=== PATIENT | male | born 1955 | race Asian ===

== ENCOUNTER 2018-04-08 09:43 | Observation (INO) | payer OTHER ==
--- NOTE | 2018-04-08 10:18 | PDOC ---
History of Present Illness - General History Source: Patient Exam Limitations: No Limitations - History of Present Illness Initial Comments: 04/08/18 10:38 The patient is a 62-year-old male, with a past medical history of HTN and HLD, who was BIBA for evaluation of dizziness. The patient states he was at work when he suddenly began experiencing dizziness and blurred vision. He denies any loss of consciousness and reports that he sat down while his coworkers called EMS. His symptoms slowly improved upon arrival of EMS and now have resolved in the ED. He reports 3 days of a productive cough of yellow sputum. The patient denies any fever, chills, nausea, vomiting, diarrhea, melena, or abdominal pain. Denies any chest pain or shortness of breath. Denies any lightheadedness or headache. He denies hematuria. Allergies: NKA Surgical History: None reported. Social History: Social drinker. PCP: Dr. Ernesto Escalona ([place]) <Marifer Pfeiffer - Last Filed: 04/08/18 12:15> - General History Source: Patient Exam Limitations: No Limitations <Alirio Simon - Last Filed: 04/08/18 14:10> - General Chief Complaint: Blood Pressure Problem Stated Complaint: HYPOTENSIVE Time Seen by Provider: 04/08/18 10:18 Past History <Marifer Pfeiffer - Last Filed: 04/08/18 12:15> - Past Medical History COPD: No CHF: No HTN: Yes - Suicide/Smoking/Psychosocial Hx Smoking History: Never smoked Have you smoked in the past 12 months: No Information on smoking cessation initiated: No Hx Alcohol Use: No Drug/Substance Use Hx: No <Alirio Simon - Last Filed: 04/08/18 14:10> - Past Medical History Allergies/Adverse Reactions: Allergies Allergy/AdvReac Type Severity Reaction Status Date / Time No Known Allergies Allergy Verified 04/08/18 09:56 Home Medications: Ambulatory Orders Amlodipine Besylate/Benazepril [Lotrel 5-20 mg Capsule] 1 each PO DAILY Aspirin [Ecotrin] 81 mg PO DAILY 04/08/18 Nitroglycerin 0.4 mg SL PRN 04/08/18 Review of Systems - Review of Systems Able to Perform ROS?: Yes Comments:: 04/08/18 10:38 CONSTITUTIONAL: No fever, no chills, no fatigue EYES: (+)Blurred vision. ENT: No ear pain, no sore throat CARDIOVASCULAR: No chest pain, no palpitations RESPIRATORY: (+)Cough. No SOB GI: No abdominal pain, no nausea, no vomiting, no constipation, no diarrhea GENITOURINARY: No dysuria, no frequency, no hematuria MUSKULOSKELETAL: No backpain, no joint pain, no myalgias SKIN: No rash NEURO: (+)Dizziness. No headache <Marifer Pfeiffer - Last Filed: 04/08/18 12:15> *Physical Exam - Vital Signs Last Vital Signs Temp Pulse Resp BP Pulse Ox 97.4 F L 54 L 16 125/79 100 04/08/18 09:43 04/08/18 09:43 04/08/18 09:43 04/08/18 09:43 04/08/18 09:43 - Physical Exam Comments: 04/08/18 10:40 CONSTITUTIONAL: Well-appearing; well-nourished; in no apparent distress HEAD: Normocephalic; atraumatic EYES: PERRL; EOM intact ENMT: External appears normal; normal oropharynx NECK: Supple; non-tender; no cervical lymphadenopathy CARD: Normal S1, S2; no murmurs, rubs, or gallops RESP: Normal chest excursion with respiration; breath sounds clear and equal bilaterally; no wheezes, rhonchi, or rales ABD: Soft, non-distended; non-tender; no palpable organomegaly, no palpable hernias EXT: Normal ROM in all four extremities; non-tender to palpation; distal pulses intact SKIN: Warm, dry, no rash <Marifer Pfeiffer - Last Filed: 04/08/18 12:15> - Vital Signs Last Vital Signs Temp Pulse Resp BP Pulse Ox 97.4 F L 54 L 16 125/79 100 04/08/18 09:43 04/08/18 09:43 04/08/18 09:43 04/08/18 09:43 04/08/18 09:43 <Alirio Simon - Last Filed: 04/08/18 14:10> Moderate Sedation - Procedure Monitoring Vital Signs: Procedure Monitoring Vital Signs Temperature 97.4 F L 04/08/18 09:43 Pulse Rate 54 L 04/08/18 09:43 Respiratory Rate 16 04/08/18 09:43 Blood Pressure 125/79 04/08/18 09:43 O2 Sat by Pulse Oximetry (%) 100 04/08/18 09:43 <Marifer Pfeiffer - Last Filed: 04/08/18 12:15> - Procedure Monitoring Vital Signs: Procedure Monitoring Vital Signs Temperature 97.4 F L 04/08/18 09:43 Pulse Rate 54 L 04/08/18 09:43 Respiratory Rate 16 04/08/18 09:43 Blood Pressure 125/79 04/08/18 09:43 O2 Sat by Pulse Oximetry (%) 100 04/08/18 09:43 <Alirio Simon - Last Filed: 04/08/18 14:10> Heart Score/ECG Review - ECG Intrepretation Comment:: 04/08/18 10:41 EKG was reviewed by Dr. Simon at 9:57. Impression: Sinus bradycardia. Moderate voltage criteria for LVH, may be normal variant. Borderline ECG. Vent Rate: 49 bpm VT Interval: 170 ms QTc: 458 ms <Marifer Pfeiffer - Last Filed: 04/08/18 12:15> ED Treatment Course - LABORATORY CBC & Chemistry Diagram: 04/08/18 10:33 04/08/18 10:32 <Marifer Pfeiffer - Last Filed: 04/08/18 12:15> - LABORATORY CBC & Chemistry Diagram: 04/08/18 10:33 04/08/18 10:32 <Alirio Simon - Last Filed: 04/08/18 14:10> Medical Decision Making - Medical Decision Making 04/08/18 14:02 Patient is a 62-year-old male with history of hypertension was brought in by EMS for near syncopal symptoms. Patient was noted to be bradycardic and hypotensive en route to the ER. In the ER, patient is noted to be awake and alert, nonfocal neurologically, with normal blood pressure and heart rate that varies between 58 (when supine) and 75 (when sitting up). Blood pressure does not change with changes in position. Chest x-ray reveals no evidence of cardiomegaly/infiltrate or effusion. EKG shows sinus bradycardia 49, without evidence of acute ischemia and with evidence of LVH by lead aVL. CBC/CMP are within normal limit. Cardiac profile is unremarkable. There is no indication for head CT at this time given that patient is nonfocal. Differential diagnoses includes vasovagal near syncope versus cardiac dysrhythmia versus sick sinus syndrome. I do not suspect an infectious process or a GI hemorrhage at this time. Will place on telemetry observation for further eval. <Alirio Simon - Last Filed: 04/08/18 14:10> *DC/Admit/Observation/Transfer - Attestations Scribe Attestion: 04/08/18 10:41 Documentation prepared by Marifer Pfeiffer, acting as medical insurance coding specialist for Alirio Simon MD. <Marifer Pfeiffer - Last Filed: 04/08/18 12:15> - Discharge Dispostion Decision to Admit order: Yes - Attestations Physician Attestion: 04/08/18 14:02 The documentation was prepared by the scribe under my direct supervision. I have reviewed the documentation which correctly represents the findings, medical decision-making and critical action taken by me. <Alirio Simon - Last Filed: 04/08/18 14:10> Diagnosis at time of Disposition: Near syncope - Discharge Dispostion Condition at time of disposition: Fair - Referrals Referrals: ON STAFF,NOT [Primary Care Provider] - - Patient Instructions - Post Discharge Activity
[2018-04-08] MEDS ORDERED: SODIUM CHLORIDE 500 ML IV STA (10:33)
[2018-04-08 11:03] LABS: EOS % 1.4 % (0-4.5); HEMATOCRIT 35.5 % (35.4-49); HEMOGLOBIN 12.6 GM/dL (11.7-16.9); LYMPH % 14.8 % (8-40); MCH 31.6 pg (25.7-33.7); MCHC 35.5 g/dl (32.0-35.9); MEAN CELL VOLUME 88.9 fl (80-96); MEAN PLT VOLUME 7.8 fl (7.5-11.1); MONO % 6.6 % (3.8-10.2); NEUT % 76.2 % (42.8-82.8); PLATELET COUNT 269 K/MM3 (134-434); RBC 3.99 M/mm3 (4.00-5.60); RDW 12.8 % (11.9-15.9); WHITE BLOOD COUNT 8.3 K/mm3 (4.0-10.0)
[2018-04-08 11:13] LABS: URINE APPEARANCE CLEAR; URINE BILIRUBIN NEGATIVE (<2.0 mg/dL); URINE COLOR LTYELLOW; URINE GLUCOSE (UA) NEGATIVE (NEGATIVE); URINE KETONE NEGATIVE (NEGATIVE); URINE LEUK ESTERASE NEGATIVE (NEGATIVE); URINE NITRITE NEGATIVE (NEGATIVE); URINE PROTEIN NEGATIVE (NEGATIVE); URINE UROBILINOGEN NEGATIVE mg/dL (0.2-1.0)
[2018-04-08 11:31] LABS: ALBUMIN 3.2 g/dl (3.4-5.0); ALK PHOS 79 U/L (45-117); ANION GAP 4 MMOL/L (8-16); BILIRUBIN,TOTAL 0.5 mg/dL (0.2-1); BLOOD UREA NITROGEN 18 mg/dL (7-18); CHLORIDE 108 mmol/L (98-107); CO2 27 mmol/L (21-32); CREATININE 0.9 mg/dL (0.55-1.3); GLUCOSE,RANDOM 104 mg/dL (74-106); SGOT/AST 27 U/L (15-37); SGPT/ALT 39 U/L (13-61); SODIUM 139 mmol/L (136-145)
[2018-04-08 18:11] VITALS: BMI 24.9
--- NOTE | 2018-04-08 18:50 | EKG ---
Test Reason : Blood Pressure : / mmHG Vent. Rate : 049 BPM Atrial Rate : 049 BPM P-R Int : 170 ms QRS Dur : 090 ms QT Int : 458 ms P-R-T Axes : 038 -26 015 degrees QTc Int : 413 ms SINUS BRADYCARDIA MODERATE VOLTAGE CRITERIA FOR LVH, MAY BE NORMAL VARIANT BORDERLINE ECG NO PREVIOUS ECGS AVAILABLE Confirmed by CAROLINA HERNANDEZ MD ([id number]) on 04/08/2018 6:50:22 PM Referred By: Confirmed By:CAROLINA HERNANEDZ MD
[2018-04-08] MEDS ORDERED: DOCUSATE SODIUM 100 MG CAPSULE (FP) PO PRN (21:07)
[2018-04-08] MEDS ORDERED: SENNOSIDES 8.6MG TABLET (FP) PO PRN (21:07)
[2018-04-08] MEDS ORDERED: ONDANSETRON 4 MG/2 ML VIAL IVPUSH PRN (21:07)
[2018-04-08] MEDS ORDERED: NITROGLYCERIN SUBLINGUAL 1/150 0.4 MG TAB SL PRN (21:15)
[2018-04-08] MEDS: guaiFENesin 200 MG/10 ML 10 ML UNIT-DOSE CUPS PO PRN (21:52)
[2018-04-08] MEDS: HEPARIN NA (PORCINE) 5,000 UNITS/ML 1ML VIAL SQ SCH (21:52)
--- NOTE | 2018-04-08 22:20 | HP ---
Admitting History and Physical - Primary Care Physician PCP: jenny (Dr. Ernesto Escalona) - Admission Chief Complaint: dizziness and blurred vision History of Present Illness: 62 year old M with h/o HTN presents to ED via EMS after experiencing near- syncope and blurred vision while at Work. Only other symptoms is a dry cough. He denies CP, LOC, SOB, or palpitations. He has never experienced these symptoms prior. In ambulance and in ED, pt was noted to be bradycardic (HR 40s). Additional vitals include" BP 125/79mmg, RR 16, temp 97.4 and O2 sat 100% (RA). CXR no acute pathology, labs WNL including cardiac enzymes. PT admitted for 24hr observation on tele unit and will be discharged with outpt follow up if he remains stable. History Source: Patient Limitations to Obtaining History: No Limitations - Past Medical History Cardiovascular: Yes: HTN - Past Surgical History Past Surgical History: Yes: None - Smoking History Smoking history: Never smoked Have you smoked in the past 12 months: No - Alcohol/Substance Use Hx Alcohol Use: No History of Substance Use: reports: None - Social History Usual Living Arrangement: Yes: With Spouse, With Child ADL: Independent Occupation: Works in a [employer] History of Recent Travel: No Home Medications - Allergies Allergies/Adverse Reactions: Allergies Allergy/AdvReac Type Severity Reaction Status Date / Time No Known Allergies Allergy Verified 04/08/18 09:56 - Home Medications Home Medications: Ambulatory Orders Amlodipine Besylate/Benazepril [Lotrel 5-20 mg Capsule] 1 each PO DAILY Aspirin [Ecotrin] 81 mg PO DAILY 04/08/18 Nitroglycerin 0.4 mg SL PRN 04/08/18 Family Disease History - Family Disease History Family Disease History: Other: Father ( (70s) Liver cancer), Mother ( (62) HTN, CVA) Other Family History: Brother alive (62) s/p Liver transplant Review of Systems - Review of Systems Constitutional: reports: No Symptoms Eyes: reports: Blurred Vision HENT: reports: No Symptoms Neck: reports: No Symptoms Cardiovascular: reports: No Symptoms Respiratory: reports: Cough Genitourinary: reports: No Symptoms Breasts: reports: No Symptoms Reported Musculoskeletal: reports: No Symptoms Integumentary: reports: No Symptoms Neurological: reports: Other (near syncope) Endocrine: reports: No Symptoms Hematology/Lymphatic: reports: No Symptoms Psychiatric: reports: No Symptoms Physical Examination Vital Signs: Vital Signs Temperature 98.1 F 04/08/18 18:05 Pulse Rate 68 04/08/18 18:05 Respiratory Rate 18 04/08/18 18:05 Blood Pressure 108/67 04/08/18 18:05 O2 Sat by Pulse Oximetry (%) 99 04/08/18 18:17 Constitutional: Yes: Well Nourished, No Distress, Calm Eyes: Yes: Conjunctiva Clear, EOM Intact, PERRL HENT: Yes: Atraumatic, Normocephalic Neck: Yes: Supple, Trachea Midline Cardiovascular: Yes: Regular Rate and Rhythm Respiratory: Yes: Regular, CTA Bilaterally, Cough Gastrointestinal: Yes: Normal Bowel Sounds, Soft ...Rectal Exam: Yes: Deferred Musculoskeletal: Yes: WNL Extremities: Yes: WNL Edema: No Peripheral Pulses WNL: Yes Peripheral Pulses: Left Radial: 2+, Right Radial: 2+, Left Doralis Pedis: 2+, Right Dorsalis Pedis: 2+ Integumentary: Yes: WNL Neurological: Yes: Alert, Oriented ...Motor Strength: WNL Psychiatric: Yes: Alert, Oriented Labs: CBC, BMP 04/08/18 10:33 04/08/18 10:32 Imaging - Results Chest X-ray: Report Reviewed (CXR 04/08/2018: No acute pathology [id number]: SB 49bpm, ALEKSEY 170ms, QTC 413ms,) Problem List - Problems (1) Bradycardia on ECG Assessment/Plan: pt to be observed on telemetry overnight He has outpt market development executive (Dr. Rodrigo Rodriguez [phone], [place]), he can f/u outpt for Holter Monitor if necessary Code(s): R00.1 - BRADYCARDIA, UNSPECIFIED (2) Prophylactic measure Assessment/Plan: OOB to chair Ambulate Code(s): Z29.9 - ENCOUNTER FOR PROPHYLACTIC MEASURES, UNSPECIFIED (3) Near syncope Assessment/Plan: observe patient observe, can be discharged with PCP and cards f/u if he remains stable. Code(s): R55 - SYNCOPE AND COLLAPSE Assessment/Plan DISPO: Full code Visit type - Emergency Visit Emergency Visit: Yes ED Registration Date: 04/08/18 Care time: The patient presented to the Emergency Department on the above date and was hospitalized for further evaluation of their emergent condition. - New Patient This patient is new to me today: Yes Date on this admission: 04/08/18 - Critical Care Critical Care patient: No
[2018-04-09 07:25] LABS: MAGNESIUM 2.2 mg/dL (1.8-2.4)
[2018-04-09] MEDS ORDERED: PT OWN MED DRAWER 7, Y5N ONE (08:55)
[2018-04-09] MEDS ORDERED: amLODIPine BESYLATE 5 MG TABLET (FP) PO SCH (10:00)
[2018-04-09] MEDS ORDERED: ASPIRIN COATED 81 MG TABLET.EC PO SCH (10:00)
[2018-04-09] MEDS: HEPARIN NA (PORCINE) 5,000 UNITS/ML 1ML VIAL SQ SCH (10:10)
[2018-04-09] MEDS: guaiFENesin 200 MG/10 ML 10 ML UNIT-DOSE CUPS PO PRN (10:17)
[2018-04-09 15:37] VITALS: BP 112/69; PULSE 64; TEMP 64
--- NOTE | 2018-04-09 15:46 | PN ---
Teaching Attending Note Name of Resident: Ida Sal ATTENDING PHYSICIAN STATEMENT I saw and evaluated the patient. I reviewed the resident's note and discussed the case with the resident. I agree with the resident's findings and plan as documented. SUBJECTIVE: OBJECTIVE: Vital Signs Period Temp Pulse Resp BP Sys/Bradley Pulse Ox Last 24 Hr 64 F-98.1 F 63-75 16-18 107-127/62-88 97-99 Laboratory Results - last 24 hr 04/09/18 06:00 Magnesium 2.2 Troponin I < 0.02 Home Medications Medication Instructions Recorded Amlodipine Besylate/Benazepril 1 each PO DAILY 04/08/18 [Lotrel 5-20 mg Capsule] Aspirin [Ecotrin] 81 mg PO DAILY 04/08/18 Nitroglycerin 0.4 mg SL PRN 04/08/18 ASSESSMENT AND PLAN:
--- NOTE | 2018-04-09 20:41 | DS ---
Physical Exam: SUBJECTIVE: Patient seen and examined. No more blurry vision. No chest pain, or SOB, no syncope or falls. Feels much better, wants to go home. Heart rate trend on tele not less than 50. OBJECTIVE: Vital Signs Period Temp Pulse Resp BP Sys/Bradley Pulse Ox Last 24 Hr 64 F-98 F 63-75 18-18 107-124/62-88 97-98 Vital Signs Temperature 64 F L 04/09/18 14:00 Pulse Rate 64 04/09/18 14:00 Respiratory Rate 18 04/09/18 13:07 Blood Pressure 112/69 04/09/18 14:00 O2 Sat by Pulse Oximetry (%) 98 04/09/18 13:07 PHYSICAL EXAM GENERAL: The patient is awake, alert, and fully oriented, in no acute distress. HEAD: Normal with no signs of trauma. EYES: PERRL, extraocular movements intact ENT: Ears normal, nares patent, oropharynx clear without exudates, moist mucous membranes. NECK: full range of motion, supple. LUNGS: Breath sounds equal, clear to auscultation bilaterally, no wheezes, no crackles HEART: Regular rate and rhythm, S1, S2 ABDOMEN: Soft, nontender, nondistended, normoactive bowel sounds, no guarding EXTREMITIES: 2+ pulses, warm, well-perfused, no edema. NEUROLOGICAL: Cranial nerves II through XII grossly intact. Normal speech, Normal Gait, no nystagmus, normal muscle strength and reflexes, normal sensation , no lateralizing signs, no facial symmetry . Laboratory Last Values WBC 8.3 K/mm3 (4.0-10.0) 04/08/18 10:33 RBC 3.99 M/mm3 (4.00-5.60) L 04/08/18 10:33 Hgb 12.6 GM/dL (11.7-16.9) 04/08/18 10:33 Hct 35.5 % (35.4-49) 04/08/18 10:33 MCV 88.9 fl (80-96) 04/08/18 10:33 MCH 31.6 pg (25.7-33.7) 04/08/18 10:33 MCHC 35.5 g/dl (32.0-35.9) 04/08/18 10:33 RDW 12.8 % (11.9-15.9) 04/08/18 10:33 Plt Count 269 K/MM3 (134-434) 04/08/18 10:33 MPV 7.8 fl (7.5-11.1) 04/08/18 10:33 Absolute Neuts (auto) 6.3 K/mm3 (1.5-8.0) 04/08/18 10:33 Neutrophils % 76.2 % (42.8-82.8) 04/08/18 10:33 Lymphocytes % 14.8 % (8-40) 04/08/18 10:33 Monocytes % 6.6 % (3.8-10.2) 04/08/18 10:33 Eosinophils % 1.4 % (0-4.5) 04/08/18 10:33 Basophils % 1.0 % (0-2.0) 04/08/18 10:33 Nucleated RBC % 0 % (0-0) 04/08/18 10:33 Sodium 139 mmol/L (136-145) 04/08/18 10:32 Potassium 4.0 mmol/L (3.5-5.1) 04/08/18 10:32 Chloride 108 mmol/L (98-107) H 04/08/18 10:32 Carbon Dioxide 27 mmol/L (21-32) 04/08/18 10:32 Anion Gap 4 MMOL/L (8-16) L 04/08/18 10:32 BUN 18 mg/dL (7-18) 04/08/18 10:32 Creatinine 0.9 mg/dL (0.55-1.3) 04/08/18 10:32 Creat Clearance w eGFR > 60 (>60) 04/08/18 10:32 Random Glucose 104 mg/dL (74-106) 04/08/18 10:32 Calcium 8.0 mg/dL (8.5-10.1) L 04/08/18 10:32 Magnesium 2.2 mg/dL (1.8-2.4) 04/09/18 06:00 Total Bilirubin 0.5 mg/dL (0.2-1) 04/08/18 10:32 AST 27 U/L (15-37) 04/08/18 10:32 ALT 39 U/L (13-61) 04/08/18 10:32 Alkaline Phosphatase 79 U/L (45-117) 04/08/18 10:32 Creatine Kinase 361 IU/L (26-308) H 04/08/18 10:32 Creatine Kinase Index 0.5 % (0.0-5.0) 04/08/18 10:32 CK-MB (CK-2) 1.9 ng/mL (0.5-3.6) 04/08/18 10:32 Troponin I < 0.02 ng/ml (0.00-0.05) 04/09/18 06:00 Total Protein 6.0 g/dl (6.4-8.2) L 04/08/18 10:32 Albumin 3.2 g/dl (3.4-5.0) L 04/08/18 10:32 Urine Color Ltyellow 04/08/18 10:50 Urine Appearance Clear 04/08/18 10:50 Urine pH 7.0 (5.0-8.0) 04/08/18 10:50 Ur Specific [employer] 1.013 (1.010-1.035) 04/08/18 10:50 Urine Protein Negative (NEGATIVE) 04/08/18 10:50 Urine Glucose (UA) Negative (NEGATIVE) 04/08/18 10:50 Urine Ketones Negative (NEGATIVE) 04/08/18 10:50 Urine Blood Negative (NEGATIVE) 04/08/18 10:50 Urine Nitrite Negative (NEGATIVE) 04/08/18 10:50 Urine Bilirubin Negative (<2.0 mg/dL) 04/08/18 10:50 Urine Urobilinogen Negative mg/dL (0.2-1.0) 04/08/18 10:50 Ur Leukocyte Esterase Negative (NEGATIVE) 04/08/18 10:50 LABS Laboratory Results - last 24 hr 04/09/18 06:00 Magnesium 2.2 Troponin I < 0.02 CXR- No acute pathology HOSPITAL COURSE: Date of Admission:04/08/18 Date of Discharge: 04/09/18 Prehospital course 62 year old M with h/o HTN presents to ED via EMS after experiencing near- syncope and blurred vision while at Work. Only other symptoms is a dry cough. He denies CP, LOC, SOB, or palpitations. He has never experienced these symptoms prior. In ambulance and in ED, pt was noted to be bradycardic (HR 40s). Additional vitals include" BP 125/79mmg, RR 16, temp 97.4 and O2 sat 100% (RA). CXR no acute pathology, labs WNL including cardiac enzymes. PT admitted for 24hr observation on tele unit and will be discharged with outpt follow up if he remains stable. Patient remains stable clinically and on telemetry and was discharged home to follow up as an outpatient with his PCP and director of employer services Minutes to complete discharge: 42 Discharge Summary Reason For Visit: PRE SYNCOPE Condition: Improved - Instructions Diet, Activity, Other Instructions: You came in with blurry vision and collapse. You were noted have a slow heart rate that has since improved Please follow up with your primary care provider, Dr. Ernesto Escalona, and with your director of employer services, Dr. Rodrigo Rodriguez, in one week Continue your medications as prescribed If you think your symptoms are not getting better, with shortness of breath, collapse, loss of consciousness, chest pain persistent blurry vision, please go to the nearest emergency room Referrals: ON STAFF,NOT [Primary Care Provider] - 1 Week Disposition: HOME - Home Medications Comprehensive Discharge Medication List: Ambulatory Orders Amlodipine Besylate/Benazepril [Lotrel 5-20 mg Capsule] 1 each PO DAILY Aspirin [Ecotrin] 81 mg PO DAILY 04/08/18 Nitroglycerin 0.4 mg SL PRN 04/08/18 This patient is new to me today: Yes Date on this admission: 04/09/18 Emergency Visit: Yes ED Registration Date: 04/08/18 Care time: The patient presented to the Emergency Department on the above date and was hospitalized for further evaluation of their emergent condition. Critical Care patient: No - Discharge Referral Referred to [facility] No
== END 2018-04-09 17:57 | disposition home or self-care (01) ==
LOC: JER 09:43 → JERBED 14:10 → J4W 16:55
PROVIDERS: ADMIT Internal Medicine; ATTEND Internal Medicine
PROC: 3E0337Z Introduction of Electrolytic and Water Balance Substance into Peripheral Vein, Percutaneous Approach (ICD-10-PCS; principal; 2018-04-08)
PROC: 3E013GC Introduction of Other Therapeutic Substance into Subcutaneous Tissue, Percutaneous Approach (ICD-10-PCS; 2018-04-08)
DX: I10 Essential (primary) hypertension (principal); E78.5 Hyperlipidemia, unspecified
CPT/HCPCS: 36415; 71045-TC-FY; 80053; 81003; 82550; 82553; 83735; 84484; 85025; 93005; 93010; 99285-25; G0378; J1644